=== PATIENT | female | born 1975 | race Caucasian/White ===

== ENCOUNTER → 2016-09-22 | Outpatient (CLI) | payer BC ==
[~2016-09-22] MED LIST: NAPROXEN 250 M250 MG PO; NORCO 7.5-3251 EACH PO; PHENTERMINE H37.5 M1 PO; PROTONIX40 MG PO; SPIRONOLACTONE25 MG PO; TOPAMAX100 MG PO
== END ==
LOC: MAMO 10:30
DX: Z12.31 Encounter for screening mammogram for malignant neoplasm of breast (principal); Z98.82 Breast implant status
CPT/HCPCS: G0202

== ENCOUNTER → 2016-10-14 | Outpatient (CLI) | payer BC | LOC: MAMO 14:00 | DX: N64.89 Other specified disorders of breast (principal) | CPT/HCPCS: 76641-LT; G0206 ==